=== PATIENT | male | born 1990 | race Two or more races ===

== ENCOUNTER 2021-05-10 03:14 | Emergency (ER) | payer OTHER ==
[~2021-05-10] VITALS: Ht 175.3 cm; Wt 111.4 kg
[2021-05-10] MEDS ORDERED: OXYMETAZOLINE HCL 0.05% 15 ML NASAL SPRAY NASAL ONE (03:30)
[2021-05-10] MEDS ORDERED: TRANEXAMIC ACID 1,000 MG/10 ML VIAL IVP ONE (03:30)
[2021-05-10 04:00] VITALS: BP 145/99
== END 2021-05-10 04:10 | disposition home or self-care (01) ==
LOC: EMS 03:15
DX: R04.0 Epistaxis (principal); F17.210 Nicotine dependence, cigarettes, uncomplicated
CPT/HCPCS: 36415; 99283; J3490